=== PATIENT | male | born 1995 | race Caucasian/White ===

== ENCOUNTER → 2017-12-26 | Day surgery (SDC) | payer OTHER ==
[2017-11-23 13:19] VITALS: Ht 190.5 cm; Wt 81.8 kg
[~2017-12-26] VITALS: Ht 190.5 cm; Wt 81.8 kg
[~2017-12-26] MED LIST: ATROPINE SULFATE 0.1 MG/ML 5ML SYR IV PRN; CEFAZOLIN 2000MG IV PUSH 15 ML IV SCH; CEFAZOLIN SOD 3000MG/22.5 ML IV PUSH ONE; DEXAMETHASONE SOD INJ 4 MG/ML VIAL ONE; EpHEDrine SULFATE INJ 50 MG/ML AMP IV PRN; EpINEphrine INJ 1MG/ML AMP 1 MG/ML AMP ONE; FENTANYL CITRATE INJ 50 MCG/1 ML 2 ML VIAL IV PRN; FENTANYL CITRATE INJ 50 MCG/1 ML 2 ML VIAL ONE; FEXO1TAB49 PO; HYDROmorphone INJ 0.5 MG/0.5 ML SYR IV PRN; KETOROLAC TROMETHAMINE 30 MG/ML VIAL ONE; LACTATED RINGER'S 1000ML 1,000 ML IV SCH; LIDO 2%/EPINEPHRINE 1:100000 20 ML VIAL ONE; LIDOCAINE HCL 2% 2 ML VIAL (20MG/ML) ONE; METOCLOPRAMIDE HCL INJ 5 MG/ML 2 ML VIAL IV PRN; MIDAZOLAM HCL 1 MG/ML 2ML VIAL ONE; MULT-506 PO; MoRPHine SULFATE 2 MG/ML CARP IV PRN; MoRPHine SULFATE 4 MG/ML 1 ML CARP\\VIAL IV PRN; ONDANSETRON INJ 2 MG/ML 2 ML VIAL IV PRN; ONDANSETRON INJ 2 MG/ML 2 ML VIAL ONE; OXYCODONE/ACETAMINOPHEN 5-325 TAB PO PRN; PROPOFOL IV EMULSION 10 MG/ML 20 ML VIAL ONE; ROPIVACAINE 0.5% 5 MG/ML 30 ML VIAL ONE; SODIUM CHLORIDE 0.9% 1000ML 1,000 ML IV SCH
--- NOTE | 2017-12-26 07:01 | History & Physical Bridge - [place] ---
H&P Re-Evaluation Bridge Note: I have examined the patient, reviewed the History & Physical and in the interval since the performance of the History & Physical I have noted the following changes of clinical significance: No changes noted
--- NOTE | 2017-12-26 11:21 | [facility] Post Operative Brief Note ---
Immediate Operative Summary Operative Date Dec 26, 2017. Pre-Operative Diagnosis Right knee anterior cruciate ligament tear Post-Operative Diagnosis Same as preop and medial meniscus tear, stable lateral meniscus tear Procedure(s) Performed Right Knee Arthroscopic Anterior Cruciate Ligament Reconstruction With Bone Patella Bone Autograft, Medial Meniscus Repair Surgeon Dr. Loco Corporate Security Officer Surgeon(s) Danuta Knapp PA-C Estimated Blood Loss 10 mL Findings Consistent with Post-Op Diagnosis Fluids (cc crystalloids) 1250 Specimens None Drains None Anesthesia Type General Regional Complication(s) none Disposition Accompanied Pt To Recover: no Disposition: Recovery Room / PACU
--- NOTE | 2017-12-26 11:35 | Discharge Instructions ---
Discharge Instructions Date of Service Dec 26, 2017. Admission Reason for Admission: Right Knee Acl Tear Discharge Discharge Diagnosis / Problem: right knee ACL tear, medial and lateral meniscus tears Discharge Goals Goal(s): Decrease discomfort, Improve function, Increase independence Activity Recommendations Activity Limitations: as noted below Lifting Limitations: until after follow-up appointment Exercise/Sports Limitations: until after follow-up appointment May Resume Sexual Activity: after follow-up appointment Shower/Bathe: may shower/bathe in 3 days, keep incision dry Driving or Machine Use: until after follow-up appointment weight bearing as tolerated with knee brace locked in extension and crutches . Instructions / Follow-Up Instructions / Follow-Up Post-operative Instructions Dear Patient and Family/Friends, Before you are discharged from the hospital, it is important to know what to expect when you get home after surgery. To that end, we have created this sheet of discharge instructions which covers many commonly asked questions. Make sure you go through this sheet in its entirety with your nurse before you are discharged. Please note that we will go over the specifics of your surgery and recovery when you return for your first post-operative visit. Sincerely, Dr. Loco Pain Expect to be in a fair amount of pain after surgery. Remember, our goal is not to eliminate your pain, but to make it tolerable. It is a good idea to stay ahead of your pain by taking the medications you were prescribed once you get home. Typically, the pain starts improving 3-7 days after surgery. You should start weaning off the narcotic pain medication (oxycodone, hydrocodone, hydromorphone, morphine) as soon as your pain improves. Please call our office if your pain is not adequately controlled. Ice Ice your operative site at least 5 times a day for 15-30 minutes at a time. Make sure you have a thin cloth between the ice or cooling unit and your skin to prevent quinn bite. This is especially important if you received a nerve block. Continue icing your operative site for the first 5-7 days after surgery , then as needed. Diet/Nausea/Vomiting Start by drinking clear liquids and eating crackers. If you can tolerate this, then you may resume your normal diet. If you feel nauseated or vomit, take Zofran/ondansetron (if prescribed). Please call our office if you have intractable nausea or vomiting, or, if after hours, you may go to the Emergency Room for help. Constipation Constipation is a common side effect of narcotic pain medication. If you have not had a bowel movement within 2 days after surgery, we recommend purchasing an over the counter laxative such as Milk of Magnesia, Dulcolax, or Miralax from a local pharmacy, and taking it as instructed. Call our clinic if any questions. Slings and Braces If you were placed in a sling or brace, it must be worn at all times, including sleep. You may remove your sling or brace for physical therapy, home exercises , and showering. The length of time you will be in your brace and range of motion restrictions depends on what surgery you had; these details will be reviewed at your first post-operative appointment. Nerve block The anesthesia team sometimes places a nerve block to help with post-operative pain control. This results in significant numbness and inability to move the extremity. The nerve block usually wears off in 8-12 hours, but sometimes can last up to 24 hours. Please call our office if you are still unable to move your extremity after 24 hours, unless you received a pain pump to take home. Nerve blocks typically wear off quickly, so start taking pain medication as soon as you start feeling soreness near your surgical site. Weight bearing and Range of Motion. Do not bear any weight through your operative extremity immediately after surgery. If you had upper extremity surgery, do not lift anything with that arm. If you are in a knee brace, keep it locked in place until your follow-up. We will discuss your weight bearing, range of motion, and lifting restrictions in detail at your first post-operative appointment. Continuous Passive Motion (CPM) Machine If you were prescribed a CPM machine, it will start after your first post- operative appointment, at which time we will give you instructions on the range of motion settings and duration of treatment Physical therapy You will be given a prescription for physical therapy or occupational therapy at your first post-operative appointment. Typically, patients start therapy within 1 week of surgery Wound care and showering We will inspect your wound at your first post-operative visit, and may do a dressing change at that time. Most patients will be in a water-proof dressing that is removed 14 days after surgery. It is normal to see some dried blood on the dressing. Do not remove your dressing, paper strips or sutures yourself unless you are given permission. Showering is allowed the day after surgery. Do not scrub or remove any dressings. The wound should not be submerged underwater (i.e. in a bathtub or pool) until 4 weeks after surgery WENDY stockings If you were given white stockings, these are to be worn at all times except to shower (on both legs) for the first 2 weeks after surgery. Driving You may not drive while taking narcotic pain medication or while in a cast, splint, sling or brace. You, the patient, need to make the final determination about when you are safe to drive, however, the earliest you may consider driving after surgery is below: Hand/Wrist/Elbow Surgery: 3 days Shoulder Surgery: 2 weeks Hip,/Knee/Ankle Surgery: 4 weeks Fracture repair: 6 weeks Return to Work Your return to work depends on what surgery was done and what type of work you do. Please bring any paperwork your employer needs completed to your first post -operative visit. Also, bring a description of your job duties, as this helps us to understand what risks you may face at work. Travel Avoid long distance travel (greater than 1 hour) in airplanes and cars for the first 6 weeks after surgery. If you must travel, you need to have a Doppler ultrasound done before you travel to rule out a blood clot in your legs. Follow-up You should have a follow-up appointment already scheduled 1-2 days after surgery. If not, please contact our office to make this appointment before you leave the hospital. When to call the office It is normal to have swelling and bruising in the limb that was operated on. This will improve with time. It is also normal to have fevers for the first 2 days after surgery. Reasons you should call your doctor include: Uncontrolled pain; Nausea, vomiting, or constipation that does not improve with medication; Fevers over 101.5, chills, sweats; Drainage or bleeding from the wound; Foul odor; Spreading areas of redness; Any other concerns Current Hospital Diet Patient's current hospital diet: Discharge Diet Recommended Diet: Regular Diet Procedures Procedures Performed: Right Knee Arthroscopic Anterior Cruciate Ligament Reconstruction With Bone Patella Bone Autograft, Medial Meniscus Repair Pending Studies Studies pending at discharge: no Medical Emergencies . Who to Call and When: Medical Emergencies: If at any time you feel your situation is an emergency, please call 911 immediately. . Non-Emergent Contact Non-Emergency issues call your: Surgeon Call Non-Emergent contact if: temperature is above 101.5, your pain is not controlled, wound has increased drainage . "Provider Documentation" section prepared by Katerin Knapp. . [place] Drug Monitoring Program Search Results: patient reviewed within database
--- NOTE | 2017-12-26 11:53 | [facility] Operative Report ---
Operative Report Operative Date Dec 26, 2017. Pre-Operative Diagnosis Right knee anterior cruciate ligament tear Post-Operative Diagnosis Same as preop and medial meniscus tear, stable lateral meniscus tear Procedure(s) Performed Right Knee Arthroscopic Anterior Cruciate Ligament Reconstruction With Bone Patella Bone Autograft, Medial Meniscus Repair Surgeon Dr. Loco Risk Consulting Treasury Director Surgeon(s) Danuta Knapp PA-C Estimated Blood Loss 10 mL Findings Please see Dr Loco operative report. Fluids (cc crystalloids) 1250 Specimens None Complication(s) None Disposition Recovery Room / PACU Indications Acute injury resulting in ACL tear and lateral meniscus tear. Instability on exam. Description of Procedure Please see Dr Loco operative report. I was lead assistant manager with procedure in its entirety. Including instrument holding, graft preparation, wound closure , brace application. I attest to the content of the Intraoperative Record and any orders documented therein. Any exceptions are noted below.
--- NOTE | 2017-12-26 12:19 | Anesthesia Progress Nt - [facility] ---
Anesthesia Post Op Note Date & Time Dec 26, 2017 at 12:18 Vital Signs Pain Intensity: 3 Vital Signs Past 12 Hours Date Time Temp Pulse Resp B/P (MAP) Pulse Ox O2 Delivery O2 Flow Rate FiO2 12/26/17 12:09 36.8 98 Room Air 12/26/17 12:07 89 13 12/26/17 12:07 88 13 98 12/26/17 12:06 132/86 12/26/17 12:02 92 12 99 12/26/17 12:02 93 12 12/26/17 12:01 124/77 12/26/17 11:58 71 30 100 12/26/17 11:58 71 30 12/26/17 11:56 122/70 12/26/17 11:53 72 12 100 12/26/17 11:53 72 12 12/26/17 11:52 69 13 100 12/26/17 11:52 72 13 12/26/17 11:51 129/76 12/26/17 11:47 64 12 100 12/26/17 11:47 64 12 12/26/17 11:46 118/68 12/26/17 11:42 65 13 12/26/17 11:42 66 13 100 12/26/17 11:41 65 13 116/68 100 12/26/17 11:41 65 13 12/26/17 11:36 68 17 12/26/17 11:36 68 17 120/62 100 12/26/17 11:33 118/64 12/26/17 11:31 36.5 75 16 118/64 100 Mask 10 12/26/17 08:43 86 18 100 12/26/17 08:43 79 12/26/17 08:41 116/72 12/26/17 08:38 59 22 100 12/26/17 08:38 57 12/26/17 08:36 117/74 12/26/17 08:33 62 26 100 12/26/17 08:33 60 12/26/17 08:31 111/64 12/26/17 08:28 72 18 99 12/26/17 08:28 78 12/26/17 08:27 70 12/26/17 08:27 71 26 100 12/26/17 08:26 111/71 12/26/17 08:22 68 12/26/17 08:22 66 26 100 12/26/17 08:21 117/80 12/26/17 08:17 60 23 100 12/26/17 08:17 59 12/26/17 08:16 114/69 12/26/17 08:12 65 16 100 12/26/17 08:12 65 12/26/17 08:11 118/71 12/26/17 08:08 61 12/26/17 08:08 61 17 100 12/26/17 08:06 116/68 12/26/17 08:03 62 12/26/17 08:03 62 15 100 12/26/17 08:01 117/68 12/26/17 07:58 70 12/26/17 07:58 68 11 100 12/26/17 07:56 119/83 12/26/17 07:53 73 9 114/76 12/26/17 07:48 80 0 12/26/17 07:43 65 0 99 12/26/17 07:43 64 12/26/17 07:38 66 0 12/26/17 06:55 36.7 65 16 129/81 (97) 99 Room Air Notes Mental Status: alert / awake / arousable, participated in evaluation Pt Amnestic to Procedure: Yes Nausea / Vomiting: adequately controlled Pain: adequately controlled Airway Patency, RR, SpO2: stable & adequate BP & HR: stable & adequate Hydration State: stable & adequate Anesthetic Complications: no major complications apparent
[2017-12-26 12:22] VITALS: TEMP 36.6
--- NOTE | 2017-12-26 12:42 | OPERATIVE REPORT ---
DATE OF OPERATION: 12/26/2017 PREOPERATIVE DIAGNOSIS: Right knee anterior cruciate ligament tear. POSTOPERATIVE DIAGNOSES: Right knee anterior cruciate ligament tear, and medial and lateral meniscus tears. OPERATION PERFORMED: Right knee ACL reconstruction with bone patellar tendon bone autograft and medial meniscus repair. SURGEON: Deondre Loco MD LEGAL PROJECT MANAGER: Katerin Knapp PA-C ESTIMATED BLOOD LOSS: 10 mL. IV FLUIDS: 1250 mL crystalloid. SPECIMENS: None. COMPLICATIONS: None. IMPLANTS: One Arthrex BTB TightRope and 1 Arthrex 8 x 23 mm PEEK interference screw. INDICATIONS: iPyush is a 22-year-old male who injured his right knee, playing soccer a couple of months ago. MRI was obtained demonstrating an ACL tear. He has had a sense of instability since that time as well. The patient desires to return to cutting and pivoting sports. I had a long discussion with him about the risks and benefits of surgery, alternatives to surgery and expected outcomes. After reviewing all these, he elected to proceed with surgery. All questions were answered. Informed consent was signed. OPERATIVE FINDINGS: 1. The undersurface of the patella was normal. 2. The trochlea was normal. 3. The medial compartment showed a small 1 cm vertical tear at the meniscal capsular junction between the body and posterior horn. There is some anteriorly located synovitis as well. The medial femoral condyle and medial tibial plateau were intact. 4. The lateral compartment showed some cracking on the undersurface of the meniscus. This did not extend all the way through to the surface of the meniscus, however. This was located just anterior to the popliteal hiatus. There was a grade 1 softening of the lateral tibial plateau. The lateral femoral condyle was intact. 5. The notch showed the ACL be ruptured off the femur and scarred to the PCL. The medial meniscus tear was repaired with a single horizontal inside suture. The lateral meniscus tear was stable and was therefore left to heal without any suturing. DESCRIPTION OF THE OPERATION: The patient was identified in the preoperative holding area where his surgical site was marked. He was given an adductor canal block by anesthesia and then brought back to main operating room, where he was placed on the operating room table and general anesthesia was administered. All bony prominences were padded. Perioperative antibiotics were administered. He was prepped and draped in the normal sterile fashion. Prior to incision, a multidisciplinary timeout was called. All in the room were in agreement. We began by performing an exam under anesthesia which showed a positive Robert's test. He had full range of motion with no increased opening to valgus stress at 30 degrees. The limb was then exsanguinated with an Esmarch bandage and tourniquet was inflated to 250 mmHg. The bone patellar tendon bone autograft was harvested through a 5 cm long incision. This measured for a 20 mm bone plug for the femur and a 23 mm bone plug for the tibia. This was prepared on the back table and sized to a 9 mm graft. We prepared the graft using a BTB TightRope for the femoral side and 2 sutures on the tibial side. The graft was then covered in a wet Ray-[place] sponge and protected on the back table. Next, the arthroscope was introduced through a lateral working portal. A medial working portal was created under direct visualization. Diagnostic arthroscopy was then performed revealing above findings. Once the diagnostic arthroscopy was complete, areas of synovitis in the anterior and lateral aspect of the knee were excised with the shaver. We then carefully inspected the medial meniscus and I felt it was in the patient's best interest to repair this tear to promote healing and prevent propagation. The meniscal rasp was inserted through the lateral portal while viewing through the medial portal. This was used to rasp the synovium above and below the tear as well as into the tear. A single Fast-Fix 360 was then placed in a horizontal mattress fashion through the meniscal tear and tightened down without difficulty. The meniscus tear was once again probed and was stable. Next, I carefully inspected the lateral meniscus tear. This tear was stable, with a good chance of healing without any intervention. Any potential suturing would have had to traverse the popliteus tendon which could be detrimental. I therefore elected to leave this tear alone. Next, the ACL was debrided from the notch. The stumps at its tibial and femoral insertions were left in place. I then marked the insertion sites with cautery and switched to the medial viewing portal. The FlipCutter guide was then placed at the femoral insertion set at 110 degrees coming through the lateral portal. The 2.4 mm guide pin was then drilled down into the knee and exited exactly as planned at the femoral insertion. The intraosseous length was 37 mm. I then pounded down the drill guide 7 mm into the bone, removed the 2.4 guidewire and drilled the 9.5 FlipCutter down into the knee. This was then flipped inside of the knee and retrodrilled to a depth of 25 mm. Next, the FiberStick was introduced down through the metal sheath into the knee. The suture was grasped out through the medial working portal to serve as a passing suture. The tibial drill guide was then placed at the tibial ACL insertion. A 1.5 cm horizontal stab wound was made in the proximal medial tibia to allow the guide be set down flush on bone. The angle was set at 55 degrees. The guide pin was drilled up into the knee and exited as planned. We then reamed over the guidepin with a 9.5 mm reamer. The periosteal surfaces at its aperture into the joint were debrided to ensure that the graft would not get hung up during passage. Next, the graft passing suture was brought down out through the tibial tunnel and the TightRope sutures were passed up through the knee and out through the anterolateral thigh. We visualized the button flipping on the lateral cortex of the femur while viewing through the medial portal. We then toggled on the white TightRope sutures and pulled the femoral bone block up into the femoral tunnel, guiding it with a hemostat into its proper orientation. Once the bone block was flushed with the aperture, we then stopped pulling on the TightRope sutures. We then cycled the knee holding max tension on the tibial sutures for 10 cycles. We then used the mechanism inspector to place a notch along the bony surface of the tibial bone plug. The 7 mm tap was used followed by the placement of an 8 x 23 mm PEEK interference screw with the knee in full extension. The white Tightrope sutures were then retensioned with the knee in full extension. Excellent fixation was obtained. Robert's was rechecked and was perfectly stable. At this point, the arthroscope was placed back into the knee and we again probed our ACL graft and were happy with the tension. The knee was brought into full extension and there was no impingement on the roof of the notch. We then used a knot pusher to tie 3 alternating half hitches to backup the fixation on the TightRope. The wounds were irrigated with copious amounts of normal saline and then began to close. Extra bone fragments from his graft were tamped into the patellar harvest site. The patellar tendon defect was closed with a running 2-0 Vicryl. The paratenon was closed with a running 3-0 Vicryl. The deep dermis was closed with a running 3-0 Vicryl. The skin was closed with 3-0 Monocryl in subcuticular fashion for the tibial and harvest site incisions, and inverted fashion for the portals. Sterile dressings were applied after we had injected 30 mL of Naropin into the surgical sites for postoperative pain control. The patient was placed into a hinged knee brace, locked in full extension, awoken from anesthesia and transferred to the recovery room in stable condition. POSTOPERATIVE COURSE: The patient will be discharged home from the recovery room. He will be weightbearing as tolerated with crutches. He will follow the simple meniscus repair protocol in addition to the ACL reconstruction PT protocol. Aspirin for DVT prophylaxis. I attest to the content of the Intraoperative Record and any orders documented therein. Any exceptions are noted below. SOBEIDA
[2017-12-26 13:02] VITALS: BP 130/75; PULSE 84; O2SAT 99
== END | disposition home or self-care (01) ==
LOC: X.SURG 06:49
PROVIDERS: ATTEND Orthopaedic Surgery
DX: S83.511A Sprain of anterior cruciate ligament of right knee, initial encounter (principal); S83.241A Other tear of medial meniscus, current injury, right knee, initial encounter; S83.281A Other tear of lateral meniscus, current injury, right knee, initial encounter; J45.909 Unspecified asthma, uncomplicated; X58.XXXA Exposure to other specified factors, initial encounter; Y93.66 Activity, soccer